=== PATIENT | female | born 1985 | race Caucasian/White ===

== ENCOUNTER 2020-05-17 14:52 | Emergency (ER) | payer MEDICAID ==
[~2020-05-17] VITALS: Ht 165.1 cm; Wt 123.0 kg
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
--- NOTE | 2020-05-17 15:27 | NUR ---
PATIENT AMBULATED TO BATHROOM WITH STEADY GAIT FOR URINE SAMPLE.
--- NOTE | 2020-05-17 15:34 | NUR ---
URINE SAMPLE COLLECTED AND SENT TO LAB, PATIENT CONNECTED TO [employer] SL[employer]ER. X-RAY TECH AT BEDSIDE.
[2020-05-17 15:40] LABS: MICROSCOPIC NOT IND
[2020-05-17 15:41] LABS: BASOPHILS % (AUTO) 1 % (0-1); EOSINOPHILS % (AUTO) 2 % (1-7); LYMPHOCYTES % (AUTO) 24 % (22-44); MD NO; MEAN CORPUSCULAR HEMOGLOBIN 29.3 pg (27.0-34.8); MEAN CORPUSCULAR HGB CONC 33.7 g/dL (32.4-35.8); MEAN PLATELET VOLUME 6.9 fL (7.4-10.4); MONOCYTES % (AUTO) 10 % (2-9); NEUTROPHILS % (AUTO) 63 % (42-75); PLATELET COUNT 408 x10^3/uL (130-400); RED BLOOD COUNT 5.09 x10^6/uL (3.82-5.3); RED CELL DISTRIBUTION WIDTH 13.4 % (9.6-15.2)
[2020-05-17 15:52] LABS: ALANINE AMINOTRANSFERASE 24 U/L (12-78); ALBUMIN 3.6 g/dL (3.4-5.0); ANION GAP 5 mmol/L (5-15); CHLORIDE 107 mmol/L (98-107); CREATININE 0.67 mg/dL (0.55-1.02)
[2020-05-17 15:57] LABS: ALKALINE PHOSPHATASE 131 U/L (45-117); BILIRUBIN,TOTAL 0.4 mg/dL (0.2-1.0); TOTAL PROTEIN 8.2 g/dL (6.4-8.2)
[2020-05-17 16:07] VITALS: BP 120/87
--- NOTE | 2020-05-17 17:08 | NUR ---
Patient given discharge instructions and prescription and they have confirmed that they understand the instructions, all questions answered. All patient belongings gathered and taken with patient. Patient ambulatory with steady gait to discharge desk.
== END 2020-05-17 17:09 | disposition home or self-care (01) ==
LOC: ED 15:58
DX: K29.00 Acute gastritis without bleeding (principal); R00.0 Tachycardia, unspecified; E11.9 Type 2 diabetes mellitus without complications; Z90.49 Acquired absence of other specified parts of digestive tract
CPT/HCPCS: 36415; 71045; 80053; 81003; 83690; 84703; 85025; 93005; 99285